=== PATIENT | female | born 1970 | race Caucasian/White ===

== ENCOUNTER 2019-09-27 15:34 | Outpatient (CLI) | payer BC, SELFPAY ==
--- NOTE | 2019-09-27 | USCV_ITS ---
Wagner Elsa Age: 49 Gender: F : 1970 Exam Date: 09/27/2019 15:57 Ordering Phys: JOLLY TORREZ Technologist: Shantell Caruso Exam Location: [facility] – [place] Indication: HISTORY: No family history of varicose veins varicose veins. PROCEDURES: Left duplex Venous Insufficiency study of the Deep and Superficial systems was carried out according to normal protocol with the patient in supine positon for deep system and dependent position for the superficial system. FINDINGS: There is no evidence of LEFT deep vein thrombosis. No evidence of superficial thrombosis in the LEFT saphenous system. No evidence of reflux was noted in the LEFT deep venous system. Venous reflux is demonstrated in the LEFT greater saphenous vein with a spectral Doppler display of greater than 500 milliseconds at the PROX AND MID LEVELS. No venous reflux noted in the LEFT small saphenous vein. CONCLUSIONS No evidence of DVT in the above-mentioned identifiable veins. Significant venous reflux of greater than 500 ms (1140, 989 and 2860 ms respectively where noted at the left saphenofemoral junction, proximal and mid greater saphenous vein segments. These venous segments were greater than 1 cm deep from the surface and was measuring 0.58, 0.53 and 0.43 cm in diameter. For the details of the venous dimensions, depth from the surface and reflux times, please refer to the measurements noted above. Dr Fadi Burk MD [facility] (Electronically Signed) Final Date: 28 September 2019 16:31 S
== END 2019-09-27 15:35 | disposition home or self-care (01) ==
LOC: RAD 15:38
PROVIDERS: PCP Nurse Practitioner Family; Visit Provider Nurse Practitioner Family
DX: I83.90 Asymptomatic varicose veins of unspecified lower extremity (principal); M79.605 Pain in left leg
CPT/HCPCS: 93971

== ENCOUNTER 2020-12-28 14:13 | Outpatient (CLI) | payer BC, SELFPAY ==
--- NOTE | 2020-12-28 14:30 | MM_ITS ---
WS: [id number] BILATERAL DIGITAL SCREENING MAMMOGRAPHY WITH CAD CLINICAL INFORMATION: Z12.39 - Encounter for other screening for malignant neop... HISTORY: Screening mammogram. No current complaints. COMPARISON: TECHNIQUE: Bilateral CC and MLO views. FINDINGS: The breasts are composed of heterogeneous fibroglandular density tissue, which can limit the detectio n of small underlying mass lesions. Dense nodular breast tissue is similar in appearance to 2019. Pre viously described large cyst upper-outer right breast has essentially resolved. A few new well-circum scribed ovoid lesions likely represent incidental cysts. New nonspecific 1.5 x 1.2 cm ovoid density upper outer left breast posterior depth along the axillary tail. Recommend spot compression views left breast and ultrasound for further evaluation. Stable punctate calcifications left greater than right breast. No suspicious mass, asymmetry, calcifi cations, or architectural distortion. No evidence of malignancy. MM/[place] [id number] IMPRESSION: BI-RADS: 0-Incomplete: Need additional imaging evaluation FOLLOW UP: Need Additional Imaging NEW NONSPECIFIC 1.5 CM X 1.2 OVOID DENSITY UPPER OUTER LEFT BREAST POSTERIOR DE PTH ALONG THE AXILLARY TAIL. RECOMMEND SPOT COMPRESSION VIEWS LEFT BREAST AND U LTRASOUND FOR FURTHER EVALUATION.
== END 2020-12-28 14:14 | disposition home or self-care (01) ==
LOC: RADSHAW 14:18
PROVIDERS: PCP Nurse Practitioner Family; Visit Provider Obstetrics & Gynecology
DX: Z12.31 Encounter for screening mammogram for malignant neoplasm of breast (principal)
CPT/HCPCS: 77067

== ENCOUNTER 2021-02-12 09:20 | Outpatient (CLI) | payer BC, SELFPAY ==
--- NOTE | 2021-02-12 09:25 | US_ITS ---
WS: [id number] LEFT DIGITAL MAMMOGRAPHY WITH CAD CLINICAL INFORMATION: R92.8 - Other abnormal and inconclusive findings on diagn... COMPARISON: December 28, 2020 TECHNIQUE: 3 views of the left breast were obtained. FINDINGS: The left breast is composed of heterogeneous fibroglandular density tissue, which can limit the detec tion of small underlying mass lesions. Stable 1.5 cm ovoid density upper outer left breast along the axillary tail. This persists on spot compression views. Ultrasound is pending. ULTRASOUND BREAST LEFT TECHNIQUE: Ultrasound left breast focused area of concern. CLINICAL INFORMATION: R92.8 - Other abnormal and inconclusive findings on diagn... FINDINGS: Ultrasound left breast at the 1:00 position 4.5 cm from the nipple. Incidental intramammary lymph nod e measuring 0.7 x 0.7 x 0.3 cm. Anechoic breast cyst with a septation measuring 1.5 x 1.2 x 1.0 cm. T his has a benign appearance. Recommend return to annual screening mammography. US/US breast LT limited* [id number] IMPRESSION: BI-RADS: 2-Benign FOLLOW UP: 1 Year Follow-up Recommend return to annual screening mammography.
== END 2021-02-12 09:21 | disposition home or self-care (01) ==
LOC: RADSHAW 09:22
PROVIDERS: PCP Nurse Practitioner Family; Visit Provider Obstetrics & Gynecology
DX: R92.8 Other abnormal and inconclusive findings on diagnostic imaging of breast (principal)
CPT/HCPCS: 76642; 77065

== ENCOUNTER 2022-04-29 08:38 | Outpatient (CLI) | payer OTHER, SELFPAY ==
--- NOTE | 2022-04-29 08:49 | MM_ITS ---
WS: [id number] SCREENING DIGITAL BREAST TOMOSYNTHESIS MAMMOGRAM WITH CAD HISTORY: SCREENING COMPARISON: 02/12/2021, 12/28/2020, 06/07/2018 Bilateral CC and MLO with tomosynthesis and synthetic mammography submitted. Computer aided detection analyzed. Breast composition: The breasts are extremely dense, which lowers the sensitivity of mammography. Pat ient has known numerous bilateral breast cysts. Majority of these cysts are all smaller than on prior study. There are additional calcifications within each breast. There are no areas of very dense cons olidation or change or distortion. During the mammographic evaluation patient has several drops of pancreatic discharge from the LEFT ni [place]ple. MM/[place] [id number] IMPRESSION: BI-RADS: 0-Incomplete: Need additional imaging evaluation FOLLOW UP: Need Additional Imaging Recommendation: Recommend ultrasound evaluation of the LEFT breast in the subar eolar region to evaluate the ducts. This will evaluate the ducts for possible n odules or papillomas.
== END 2022-04-29 08:39 | disposition home or self-care (01) ==
PROVIDERS: PCP Nurse Practitioner Family; Visit Provider Nurse Practitioner Family
DX: Z12.31 Encounter for screening mammogram for malignant neoplasm of breast (principal)
CPT/HCPCS: 77063; 77067

== ENCOUNTER 2022-05-19 08:00 | Outpatient (CLI) | payer OTHER, SELFPAY ==
--- NOTE | 2022-05-19 08:14 | US_ITS ---
WS: [id number] ULTRASOUND LEFT BREAST HISTORY: LEFT breast discharge. COMPARISON: 02/12/2021 and 04/29/2022 TECHNIQUE: 2-D and Doppler. No suspicious masses or duct dilatation is noted in the anterior LEFT breast in the subareolar region . No intraductal mass or papilloma. No definite ectasia. US/US breast LT limited* [id number] IMPRESSION: BI-RADS: 1-Negative FOLLOW-UP: See Report Return to annual screening mammography. If bloody nipple discharge persists mily gical evaluation may be necessary.
== END 2022-05-19 08:01 | disposition home or self-care (01) ==
PROVIDERS: PCP Nurse Practitioner Family; Visit Provider Nurse Practitioner Family
DX: R92.8 Other abnormal and inconclusive findings on diagnostic imaging of breast (principal); N64.52 Nipple discharge
CPT/HCPCS: 76642